=== PATIENT | male | born 1990 | race African-American/Black ===

== ENCOUNTER 2024-02-25 13:38 | Emergency (ER) | payer SELFPAY ==
[2024-02-25] MEDS ORDERED: TDAP (DIPHTH,PERTUSS(ACELL),TET VAC) 0.5 ML VIAL IMVAC ONE (14:40)
[2024-02-25] MEDS ORDERED: LIDOCAINE 1% 20 ML MDV ONE (14:40)
[2024-02-25] MEDS ORDERED: CIPROFLOXACIN HCL 500 MG TAB ONE (14:41)
--- NOTE | 2024-02-25 15:42 | ER ---
Nurse's Notes [facility] Name: Marcio Maciel [facility] Age: 33 yrs Sex: Male : 1990 Arrival Date: 02/25/2024 Time: 13:38 Bed 8 Private MD: Diagnosis: Hand Laceration/ Open wound of hand Presentation: 02/24 14:23 Chief complaint: Patient states: [place], kb3 cutting his left palm after falling. Denies any other injuries. Coronavirus screen: Vaccine status: Patient reports being unvaccinated. Client denies travel out of the [place] in the last 14 days. Ebola Screen: Patient negative for fever greater than or equal to 101.5 degrees Fahrenheit, and additional compatible Ebola Virus Disease symptoms Patient denies exposure to infectious person. Patient denies travel to an Ebola-affected area in the 21 days before illness onset. Initial Sepsis Screen: Does the patient meet any 2 criteria? No. Patient's initial sepsis screen is negative. Does the patient have a suspected source of infection? No. Patient's initial sepsis screen is negative. Risk Assessment: Do you want to hurt yourself or someone else? Patient reports no desire to harm self or others. Onset of symptoms was February 25, 2024 at 13:00. 14:23 Method Of Arrival: Ambulatory kb3 14:23 Acuity: JOVAN 3 kb3 14:33 Care prior to arrival: Bleeding of injury controlled. Mechanism of Injury: Fall from ko1 standing position. Trauma event details: Injury occurred in the [facility]. Triage Assessment: 14:25 General: Appears in no apparent distress. Behavior is calm, cooperative. Pain: kb3 Complains of pain in palm of left hand Pain does not radiate. Pain currently is 5 out of 10 on a pain scale. Injury Description: Laceration sustained to palm of left hand is clean, 0.5 to 2.5 cm long, not bleeding, was sustained 1-2 hours ago. a small amount of bleeding noted at this time. Trauma Activation: Not Applicable Physician: ED Physician; Name: ; Notified At: ; Arrived At: Physician: General Surgeon; Name: ; Notified At: ; Arrived At: Physician: Radiology; Name: ; Notified At: ; Arrived At: Physician: Respiratory; Name: ; Notified At: ; Arrived At: Physician: Lab; Name: ; Notified At: ; Arrived At: Historical: - Allergies: 14:25 No Known Allergies; kb3 - Home Meds: 14:25 None [Active]; kb3 - PMHx: 14:25 None; kb3 - PSHx: 14:25 None; kb3 - Immunization history:: Adult Immunizations up to date, Last tetanus immunization: > 10 years ago. - Infectious Disease History:: Denies. - Immunization history: Last tetanus immunization: unknown. - Social history:: Smoking status: Patient denies any tobacco usage or history of. Screenin:33 Abuse screen: Denies threats or abuse. Denies injuries from another. Tuberculosis ko1 screening: No symptoms or risk factors identified. 14:36 [facility] ED Fall Risk Assessment (Adult) History of falling in the last 3 months, ko1 including since admission Yes- single mechanical fall (1 pt) Confusion or Disorientation No (0 pts) Intoxicated or Sedated No (0 pts) Impaired Gait No (0 pts) Mobility Assist Device Used No (0 pt) Altered Elimination No (0 pt) Score/Fall Risk Level 0 - 2 = Low Risk Oriented to surroundings, Maintained a safe environment, Educated pt \T\ family on fall prevention, incl call for assistance when getting out of bed, Assessed \T\ reinforced patient's understanding of fall precautions, Provided non-skid footwear, Hourly rounding (assess needs \T\ fall precautionary measures) done, Used ambulatory aids as needed (educated on \T\ assisted with), Used gait belt as appropriate. Nutritional screening: No deficits noted. Primary Survey: 14:33 NO uncontrolled hemorrhage observed. A: The client is awake and alert. The airway is ko1 patent. The client is alert. Airway: patent. Breathing/Chest: Spontaneous respiratory effort, equal unlabored respirations, breath sounds clear bilaterally, regular pattern, symmetrical chest rise and fall. Circulation: No external hemorrhage present. Regular and strong central pulse, skin warm/dry/normal color. Disability Pupils are equal, round, reactive to light and accommodation. Client is alert. Exposure/Environment: There is no evidence of uncontrolled external bleeding. 14:35 Reassessment Alertness and Airway: Awake and alert. The airway is patent. Breathing: ko1 Spontaneous respiratory effort, equal unlabored respirations, breath sounds clear bilaterally, regular pattern with symmetrical chest rise and fall. Circulation: No external hemorrhage noted. Regular and strong central pulse, skin warm/dry/normal color. Disability: Pupils Pupils are equal, round, reactive to light and accomodation. Alert. Assessment: 14:36 General: Appears in no apparent distress. Behavior is calm, cooperative, appropriate ko1 for age. Pain: Complains of pain in palm of left hand. Neuro: No deficits noted. Cardiovascular: No deficits noted. Respiratory: No deficits noted. GI: No deficits noted. : No deficits noted. EENT: No deficits noted. Derm: No deficits noted. Derm:. Musculoskeletal: No deficits noted. Injury Description: Laceration sustained to palm of left hand is clean, was sustained 30-60 minutes ago. moderate bleeding noted at this time. Vital Signs: 14:23 BP 128 / 73; Pulse 51; Resp 20; Temp 98.1; Pulse Ox 99% ; Weight 81.65 kg; Height 5 ft. ko1 11 in. ; Pain 5/10; 15:44 BP 124 / 70; Pulse 56; Resp 16; Pulse Ox 100% ; ko1 14:23 Body Mass Index 25.11 (81.65 kg, 180.34 cm) ko1 14:23 Pain Scale: Adult ko1 Alfonso Coma Score: 14:33 Eye Response: spontaneous(4). Motor Response: obeys commands(6). Verbal Response: ko1 oriented(5). Total: 15. Trauma Score (Adult): 14:33 Eye Response: spontaneous(1); Verbal Response: oriented(1); Motor Response: obeys ko1 commands(2); Systolic BP: > 89 mm Hg(4); Respiratory Rate: 10 to 29 per min(4); [place] Score: 15; Trauma Score: 12 ED Course: 13:41 Patient arrived in ED. mr 13:41 Hawk De Jesus MD is Attending Physician. ec2 14:16 Sapna West, SHANE is Primary Nurse. ko1 14:25 Triage completed. kb3 14:25 Arm band placed on right wrist. Patient placed in an exam room, on a stretcher. Bandage kb3 applied. 14:33 Patient has correct armband on for positive identification. Bed in low position. Call ko1 light in reach. 14:33 O2 via RA. ko1 14:36 Provided Education on: meds/procedure. Pulse ox on. NIBP on. Door closed. Noise ko1 minimized. Lights dimmed. Warm blanket given. 14:36 No provider procedures requiring assistance completed. Patient did not have IV access ko1 during this emergency room visit. 14:45 Diet tray given. ko1 15:44 Dressings: Kerlix X 1; palm of left hand non-adherent dressing x 1 palm of left hand. ko1 15:47 Thermoregulation: warm blanket given to patient. ko1 Administered Medications: 14:45 Drug: Ciprofloxacin PO 750 mg PO once Route: PO; ko1 15:15 Follow up: Response: No adverse reaction ko1 14:45 Drug: Boostrix Tdap IM 0.5 ml IM once; as a single dose Route: IM; Site: left deltoid; ko1 15:15 Follow up: Response: No adverse reaction ko1 15:42 Drug: Lidocaine Infiltration (1 %) 10 ml 20 ml Infiltration once; to bedside {Note: ko1 given by Dr De Jesus.} Volume: 20 ml; Route: Infiltration; Medication: 15:44 Vaccine Information Statement (VIS) provided today. Questions and/or concerns ko1 addressed. VIS edition date: 2017. Intake: 14:35 PO: 0ml; Total: 0ml. ko1 Output: 14:35 Urine: 0ml; Total: 0ml. ko1 Outcome: 15:41 Discharge ordered by . ec2 15:44 Discharged to home ambulatory, ko1 15:44 Condition: stable 15:44 Discharge instructions given to patient, Instructed on discharge instructions, follow up and referral plans. medication usage, wound care, Demonstrated understanding of instructions, follow-up care, medications, wound care, Prescriptions given X 1, 15:47 Patient's length of stay was not longer than 2 hours. ko1 15:49 Patient left the ED. ko1 Signatures: Smita Pierson, Reg Reg Argelia Goodson, RN RN kb3 Sapna West RN RN ko1 Hawk De Jesus MD MD ec2 Corrections: (The following items were deleted from the chart) 14:33 14:23 BP 128 / 3; Pulse 51bpm; Resp 20bpm; Pulse Ox 99%; Temp 98.1F; 81.65 kg; Height 5 ko1 ft. 11 in.; BMI: 25.1; Pain 5/10, Adult; kb3
--- NOTE | 2024-02-25 15:42 | EDPHYS ---
Physician Documentation [facility] Name: Marcio Maciel [facility] [place] Age: 33 yrs Sex: Male : 1990 Arrival Date: 02/25/2024 Time: 13:38 Bed 8 Private MD: ED Physician Hawk De Jesus HPI: 02/24 15:03 This 33 yrs old Black Male presents to ER via Ambulatory with complaints of Fall ec2 Injury, Laceration To Hand. 15:03 Patient arrives today for evaluation of a left hand injury. States that he was fishing, ec2 subsequently tripped and tried to brace himself on the rock, no LOC, sustained a laceration to the palm of the left hand. Unsure of tetanus status.. Historical: - Allergies: 14:25 No Known Allergies; kb3 - Home Meds: 14:25 None [Active]; kb3 - PMHx: 14:25 None; kb3 - PSHx: 14:25 None; kb3 - Immunization history:: Adult Immunizations up to date, Last tetanus immunization: > 10 years ago. - Infectious Disease History:: Denies. - Immunization history: Last tetanus immunization: unknown. - Social history:: Smoking status: Patient denies any tobacco usage or history of. ROS: 15:03 Constitutional: as per hpi ec2 Exam: 15:03 Constitutional: GEN: NAD Head: atraumatic Eyes: EOMI Ears: External ears are ec2 normal. CV: regular rate LUNGS: no respiratory distress ABD: non-distended SKIN: Small 2 cm laceration to the distal aspect of the left palm. No retained foreign body, appear superficial in nature. MSK: no evidence of trauma NEURO: moves all extremities equally Vital Signs: 14:23 BP 128 / 73; Pulse 51; Resp 20; Temp 98.1; Pulse Ox 99% ; Weight 81.65 kg; Height 5 ft. ko1 11 in. ; Pain 5/10; 15:44 BP 124 / 70; Pulse 56; Resp 16; Pulse Ox 100% ; ko1 14:23 Body Mass Index 25.11 (81.65 kg, 180.34 cm) ko1 14:23 Pain Scale: Adult ko1 Alfonso Coma Score: 14:33 Eye Response: spontaneous(4). Motor Response: obeys commands(6). Verbal Response: ko1 oriented(5). Total: 15. Trauma Score (Adult): 14:33 Eye Response: spontaneous(1); Verbal Response: oriented(1); Motor Response: obeys ko1 commands(2); Systolic BP: > 89 mm Hg(4); Respiratory Rate: 10 to 29 per min(4); [place] Score: 15; Trauma Score: 12 Laceration: 15:42 Wound Repair of 3cm ( 1.2in ) subcutaneous laceration to left hand. Distal ec2 neuro/vascular/tendon intact. Anesthesia: Local anesthetic administered with 5 mls of 1% lidocaine. Wound prep: Moderate cleansing by records management technician. Skin closed with 3 4-0 chromic gut using simple sutures and sterile technique. Dressed with non-adherent dressing. Patient tolerated well. MDM: 14:17 Patient medically screened. ec2 15:03 Data reviewed: vital signs. ED course: Patient arrives today for evaluation of left ec2 hand injury. Examination remarkable for skin findings as above. Will update patient's tetanus status, give the patient ciprofloxacin give the patient water exposure, will also anesthetize and suture the area.. 15:42 ED course: Absorbable stitches without any issue. Will discharge home, start him on ec2 Cipro for prophylaxis given salt water exposure. Return precautions given. 02/24 14:37 Order name: Wound Care; Complete Time: 14:45 ec2 Administered Medications: 14:45 Drug: Ciprofloxacin PO 750 mg PO once Route: PO; ko1 15:15 Follow up: Response: No adverse reaction ko1 14:45 Drug: Boostrix Tdap IM 0.5 ml IM once; as a single dose Route: IM; Site: left deltoid; ko1 15:15 Follow up: Response: No adverse reaction ko1 15:42 Drug: Lidocaine Infiltration (1 %) 10 ml 20 ml Infiltration once; to bedside {Note: ko1 given by Dr De Jesus.} Volume: 20 ml; Route: Infiltration; Disposition Summary: 02/25/24 15:41 Discharge Ordered Notes: Location: Home ec2 Condition: Stable ec2 Diagnosis - Hand Laceration/ Open wound of hand ec2 Followup: ec2 - With: Private Physician - When: - Reason: Re-evaluation by your physician Discharge Instructions: - Discharge Summary Sheet ec2 - Laceration Care, Adult ec2 Forms: - Work release form ko1 - Medication Reconciliation Form ec2 - Antibiotic Education ec2 - Prescription Opioid Use ec2 - Patient Portal Instructions ec2 - Leadership Thank You Letter ec2 Prescriptions: - Cipro 250 mg Oral tablet - take 2 tablets ORAL route every 12 hours; 10 tablet; Refills: 0, Product ec2 Selection Permitted Signatures: Argelia Alfaro RN RN kb3 Sapna West RN RN ko1 Hawk De Jesus MD MD ec2
[2024-02-25 15:55] VITALS: TEMP 98.1
[2024-02-25 16:17] VITALS: BP 124/70; O2SAT 100
== END 2024-02-25 15:49 | disposition home or self-care (01) ==
LOC: ER 13:38
PROC: 0HQGXZZ Repair Left Hand Skin, External Approach (ICD-10-PCS; principal; 2024-02-25)
DX: S61.412A Laceration without foreign body of left hand, initial encounter (principal)
CPT/HCPCS: 12001; 96372; 99285; J2001